=== PATIENT | male | born 1955 | race Caucasian/White ===

== ENCOUNTER 2017-11-17 14:25 | Emergency (ER) | payer OTHER ==
[2017-11-17 15:02] VITALS: BP 167/100; PULSE 85; RESP 18; TEMP 97.8; O2SAT 97
--- NOTE | 2017-11-17 15:58 | ED PDOC ---
HPI: Back Chief Complaint (Provider): Back Pain History Per: Patient History/Exam Limitations: no limitations Onset/Duration Of Symptoms: Other (x1 week) Current Symptoms Are (Timing): Still Present Additional Complaint(s): 62 year old male presents to the ED complaining of back and neck pain for 1 week. Patient reports pain is worse since Friday after he had an unwitnessed syncopal episode in the bathroom for 1 - 2 minutes. EMS was called but patient declined to go the hospital. He also reports vomiting every morning before eating for 3 months. Denies fever, chills, abdominal pain, nausea, or diarrhea. PMD: Dr. Gonzalez <Sophia Ma - Last Filed: 11/17/17 17:56> <Patrizia De La Rosa - Last Filed: 11/22/17 13:39> Time Seen by Provider: 11/17/17 15:26 Chief Complaint (Nursing): Cough, Cold, Congestion Past Medical History Reviewed: Historical Data, Nursing Documentation, Vital Signs Vital Signs: Last Vital Signs Temp 97.8 F 11/17/17 14:59 Pulse 85 11/17/17 14:59 Resp 18 11/17/17 14:59 BP 167/100 H 11/17/17 14:59 Pulse Ox 97 11/17/17 14:59 - Medical History PMH: HTN Denies: Chronic Kidney Disease Other PMH: Ventral hernia - Surgical History Surgical History: No Surg Hx - Family History Family History: States: Unknown Family Hx <Sophia Ma - Last Filed: 11/17/17 17:56> Vital Signs: Last Vital Signs Temp 97.8 F 11/17/17 14:59 Pulse 85 11/17/17 14:59 Resp 18 11/17/17 14:59 BP 167/100 H 11/17/17 14:59 Pulse Ox 97 11/17/17 18:00 <Patrizia De La Rosa - Last Filed: 11/22/17 13:39> - Home Medications Home Medications: Ambulatory Orders Medication Instructions Recorded RX: traMADol [Ultram] 50 mg PO Q6H PRN #15 tab 11/17/17 Sulfamethoxazole/Trimethoprim 1 each PO BID #14 tablet 11/17/17 [Bactrim 400-80 mg Tablet] - Allergies Allergies/Adverse Reactions: Allergies Allergy/AdvReac Type Severity Reaction Status Date / Time No Known Allergies Allergy Verified 11/17/17 14:59 Review of Systems ROS Statement: Except As Marked, All Systems Reviewed And Found Negative Constitutional: Negative for: Fever, Chills Gastrointestinal: Positive for: Vomiting. Negative for: Nausea, Abdominal Pain, Diarrhea Musculoskeletal: Positive for: Back Pain <Sophia Ma - Last Filed: 11/17/17 17:56> Physical Exam - Reviewed Nursing Documentation Reviewed: Yes Vital Signs Reviewed: Yes - Physical Exam Appears: Positive for: Non-toxic, No Acute Distress Head Exam: Positive for: ATRAUMATIC, NORMAL INSPECTION, NORMOCEPHALIC Skin: Positive for: Normal Color, Warm, Dry Eye Exam: Positive for: Normal appearance Neck: Positive for: Normal, Painless ROM Cardiovascular/Chest: Positive for: Regular Rate, Rhythm. Negative for: Murmur Respiratory: Positive for: Normal Breath Sounds. Negative for: Wheezing, Respiratory Distress Gastrointestinal/Abdominal: Positive for: Soft, Hernia (Ventral). Negative for: Tenderness Back: Positive for: Normal Inspection Extremity: Positive for: Normal ROM Neurologic/Psych: Positive for: Alert, Oriented. Negative for: Motor/Sensory Deficits <Sophia Ma - Last Filed: 11/17/17 17:56> - Laboratory Results Result Diagrams: 11/17/17 16:01 11/17/17 16:01 - ECG O2 Sat by Pulse Oximetry: 97 (RA) Pulse Ox Interpretation: Normal <Sophia Ma - Last Filed: 11/17/17 17:56> - Laboratory Results Result Diagrams: 11/17/17 16:01 11/17/17 16:01 <Patrizia De La Rosa - Last Filed: 11/22/17 13:39> Medical Decision Making Medical Decision Making: Initial Impression: Back pain Initial Plan: --CT cervical spine --CT head --ECG --CMP --Magnesium stat --Phosphorous stat --Troponin stat --CBC --Chest X-ray --Urine culture --Spine X-ray --Urinalysis Labs WNL (+) UTI Scribe Attestation: Documented by Rosalio Hebert acting as a scribe for Sophia RAVI. Provider Scribe Attestation: All medical record entries made by the Scribe were at my direction and personally dictated by me. I have reviewed the chart and agree that the record accurately reflects my personal performance of the history, physical exam, medical decision making, and the department course for this patient. I have also personally directed, reviewed, and agree with the discharge instructions and disposition. <Sophia Ma - Last Filed: 11/17/17 17:56> Disposition - Patient ED Disposition Is Patient to be Admitted: No Counseled Patient/Family Regarding: Diagnosis, Need For Followup, Rx Given - Disposition Disposition: Routine/Home Disposition Time: 17:58 <Sophia Ma - Last Filed: 11/17/17 17:56> <Patrizia De La Rosa - Last Filed: 11/22/17 13:39> - Clinical Impression Clinical Impression: Syncope, Neck pain, UTI (urinary tract infection) - Disposition Referrals: [facility] [Outside] Condition: GOOD Prescriptions: Sulfamethoxazole/Trimethoprim [Bactrim 400-80 mg Tablet] 1 each PO BID #14 tablet RX: traMADol [Ultram] 50 mg PO Q6H PRN #15 tab PRN Reason: Pain Instructions: Urinary Tract Infections in Adults, Syncope (Fainting) (DC) Forms: [employer] ([place]) Addendum Addendum: 11/22/17 13:38 Reviewed chart and agree with PA assessment and plan. <Patrizia De La Rosa - Last Filed: 11/22/17 13:39>
[2017-11-17 16:10] LABS: EOS % 0.3 % (0.0-4.0); HEMOGLOBIN 14.6 g/dL (12.0-18.0); LYMPH # 1.3 K/uL (1.0-4.3); LYMPH % 29.2 % (20.0-40.0); MEAN CELL VOLUME 81.6 fl (80.0-94.0); MEAN CORPUSCULAR HEMOGLOBIN 27.2 pg (27.0-31.0); MEAN CORPUSCULAR HGB CONC 33.4 g/dL (33.0-37.0); MEAN PLATELET VOLUME 9.1 fl (7.2-11.7); MONO # 0.6 K/uL (0.0-0.8); MONO % 13.3 % (0.0-10.0); NEUT # 2.5 K/uL (1.8-7.0); NEUT % 56.2 % (50.0-75.0); NRBC % 0.1 % (0.0-0.0); RBC 5.36 Mil/uL (4.40-5.90); RED CELL DISTRIBUTION WIDTH 15.4 % (11.5-14.5); WHITE BLOOD COUNT 4.4 K/uL (4.8-10.8)
[2017-11-17 16:17] LABS: SQUAMOUS EPITHIAL 4 /hpf (0-5); URINE BACTERIA OCC (<OCC); URINE BILIRUBIN NEGATIVE (NEGATIVE); URINE BLOOD SMALL (NEGATIVE); URINE CLARITY CLOUDY (Clear); URINE COLOR YELLOW (YELLOW); URINE GLUCOSE (UA) NEG (Normal); URINE LEUKOCYTE ESTERASE LARGE Leu/uL (Negative); URINE PROTEIN 30 mg/dL (NEGATIVE)
[2017-11-17 16:28] LABS: ALB/GLOB RATIO 0.9 (1.0-2.1); ALBUMIN 3.7 g/dL (3.5-5.0); ALT/SGPT 40 U/L (21-72); AST/SGOT 28 U/L (17-59); BLOOD UREA NITROGEN 14 mg/dl (9-20); CALCIUM 8.8 mg/dL (8.4-10.2); GFR NON-AFRICAN AMERICAN > 60
--- NOTE | 2017-11-17 17:09 | CT ---
Date of service: 11/17/2017 PROCEDURE: CT HEAD WITHOUT CONTRAST. HISTORY: dizziness, vomiting COMPARISON: None available. TECHNIQUE: Axial computed tomography images were obtained through the head/brain without intravenous contrast. Radiation dose: Total exam DLP = 888.34 mGy-cm. This CT exam was performed using one or more of the following dose reduction techniques: Automated exposure control, adjustment of the mA and/or kV according to patient size, and/or use of iterative reconstruction technique. FINDINGS: HEMORRHAGE: No acute parenchymal, subarachnoid or extra-axial hemorrhage. BRAIN: Minimal chronic periventricular white matter ischemic changes are felt to be present. No obvious parenchymal nor extra-axial mass or collection. Mild generalized volume loss. VENTRICLES: No obstructive hydrocephalus. CALVARIUM: Calvarium intact. PARANASAL SINUSES: Unremarkable as visualized. No significant inflammatory changes. MASTOID AIR CELLS: Unremarkable as visualized. No inflammatory changes. OTHER FINDINGS: None. IMPRESSION: No acute intracranial hemorrhage. Suspect minimal chronic periventricular white matter ischemic changes. Mild generalized volume loss.
--- NOTE | 2017-11-17 17:28 | CT ---
Date of service: 11/17/2017 PROCEDURE: CT Cervical Spine without contrast HISTORY: Neck pain COMPARISON: No prior study available for comparison TECHNIQUE: Axial computed tomography images were obtained of the cervical spine without the use of intravenous contrast. Coronal and sagittal reformatted images were created and reviewed. Radiation dose: Total exam DLP = 400.78 mGy-cm. This CT exam was performed using one or more of the following dose reduction techniques: Automated exposure control, adjustment of the mA and/or kV according to patient size, and/or use of iterative reconstruction technique. FINDINGS: VERTEBRAE: No acute compression fractures no retropulsed fragments. Vertebral bodies exhibit normal stature. Vertebral bodies and facets normally aligned. DISCS/SPINAL CANAL/NEURAL FORAMINA: Multilevel degenerative spondylosis. At the C4-C5 level, there is adequate disc height. Small amount of intradiscal calcification present. Small focal central and left parasagittal disc ridge complex contiguous with mildly hypertrophic uncovertebral joints. Facets also hypertrophic. Changes result in mild moderate localized compression of the ventral surface of the thecal sac and spinal cord more so on the left side. The central canal is mildly narrowed. Exit foramina are narrowed bilaterally. At the C5 C6 level, there is mild posterior disc space narrowing. Small broad-based disc ridge complex contiguous with mildly hypertrophic uncovertebral joints. The facets also slightly over grown. Changes result in mild flattening of the ventral surface of the thecal sac and mild moderate central canal narrowing.. Exit foramina are marginal to slightly narrowed bilaterally more so on the right. At the C6-C7 level, there is adequate disc height. Small central and bilateral disc ridge complex also results in [id number] canal narrowing with of focal compression of the ventral surface of the thecal sac and probably mild cord compression as well. Exit foramina appear adequate. A PARASPINAL SOFT TISSUES: Unremarkable. OTHER FINDINGS: Lung apices clear. IMPRESSION: No acute fractures.. Mild multilevel degenerative spondylosis most notably affecting the C4-C5, C5-C6 and to a slightly lesser degree C6-C7 levels as detailed above
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
--- NOTE | 2017-11-17 17:34 | RAD ---
Date of service: 11/17/2017 HISTORY: syncope COMPARISON: 07/05/2015 TECHNIQUE: Chest PA and lateral FINDINGS: LUNGS: No active pulmonary disease. PLEURA: No significant pleural effusion identified. No pneumothorax apparent. CARDIOVASCULAR: No radiographic findings to suggest acute or significant cardiovascular disease. OSSEOUS STRUCTURES: No significant abnormalities. VISUALIZED UPPER ABDOMEN: Normal. OTHER FINDINGS: None. IMPRESSION: No active disease. No significant interval change compared to the prior examination(s).
--- NOTE | 2017-11-18 12:01 | CARD ---
APPROVED REPORT Date of service: 11/17/2017 EKG Measurement Heart [id number] <Conclusion> Sinus rhythm with 1st degree AV block Possible Left atrial enlargement Nonspecific T wave abnormality Abnormal ECG
== END 2017-11-17 18:06 | disposition home or self-care (01) ==
LOC: H.ER 14:25
DX: R55 Syncope and collapse (principal); M54.2 Cervicalgia; N39.0 Urinary tract infection, site not specified; I10 Essential (primary) hypertension